=== PATIENT | female | born 1955 | race Two or more races ===

== ENCOUNTER → 2021-12-04 | Outpatient (CLI) | payer MEDICARE, BC ==
[~2021-12-04] MED LIST: PROHANCE 279.3MG/ML 15ML VIAL ONE
== END ==
LOC: M PLAIMG 12:18 → EDUNIT# 13:45
DX: M70.61 Trochanteric bursitis, right hip (principal); M70.62 Trochanteric bursitis, left hip; M53.3 Sacrococcygeal disorders, not elsewhere classified; G89.29 Other chronic pain; K76.89 Other specified diseases of liver
CPT/HCPCS: 72195; 74183; A9576

== ENCOUNTER → 2021-12-04 | Outpatient (CLI) | payer MEDICARE | LOC: M PLAIMG 12:11 | DX: K76.89 Other specified diseases of liver (principal) ==

== ENCOUNTER → 2023-02-11 | Outpatient (CLI) | payer MEDICARE, BC ==
[~2023-02-11] MED LIST changes: +E-Z-GAS II EFFERVESCENT PACKET (SODIUM BICARB./CITRIC ACID/SIMETHICONE) As Ordered ONE; +E-Z-HD 98% w/w 340GM SUSP BTL As Ordered ONE; +E-Z-PAQUE 96% w/w SUSP 176GM BTL As Ordered ONE; -PROHANCE 279.3MG/ML 15ML VIAL ONE
== END ==
LOC: M RAD 10:14
PROVIDERS: ATTEND Nurse Practitioner Family
DX: R13.10 Dysphagia, unspecified (principal)